=== PATIENT | female | born 1965 | race Caucasian/White ===

== ENCOUNTER 2021-05-02 17:57 | Emergency (ER) | payer OTHER | END 2021-05-02 22:55 | disposition home or self-care (01) | LOC: FER 17:57 | DX: B34.9 Viral infection, unspecified (principal); I10 Essential (primary) hypertension; E11.9 Type 2 diabetes mellitus without complications; Z88.8 Allergy status to other drugs, medicaments and biological substances; Z88.2 Allergy status to sulfonamides; Z91.040 Latex allergy status; Z20.822 Contact with and (suspected) exposure to COVID-19 | CPT/HCPCS: 87880; 99283; U0002 ==

== ENCOUNTER 2021-12-17 21:57 | Emergency (ER) | payer OTHER | END 2021-12-17 23:30 | disposition home or self-care (01) | LOC: FER 21:57 | DX: E11.649 Type 2 diabetes mellitus with hypoglycemia without coma (principal); Z79.4 Long term (current) use of insulin; Z88.8 Allergy status to other drugs, medicaments and biological substances; Z91.040 Latex allergy status; Z28.311 Partially vaccinated for COVID-19 | CPT/HCPCS: 99284 ==